=== PATIENT | female | born 2000 | race Hispanic/Latino ===

== ENCOUNTER 2022-01-08 20:18 | Emergency (ER) | payer SELFPAY ==
[2022-01-08] MEDS ORDERED: CORTISPORIN OTI10 ML AD (20:32)
[2022-01-08 20:40] VITALS: BP 112/67
== END 2022-01-08 20:54 | disposition home or self-care (01) | DRG 156 ==
LOC: ED 20:18
DX: H60.92 Unspecified otitis externa, left ear (principal)